=== PATIENT | female | born 1950 | race African-American/Black ===

== ENCOUNTER → 2016-12-21 | Outpatient (CLI) | payer OTHER ==
[~2016-12-21] MED LIST: AMLODIPINE BESYL5 MG; ASPIRIN EC81 M1 PO; ATORVASTATIN CA40 MG PO; CIPROFLOXACIN500 M1 PO; ESTRADIOL 1 MG T1 M1; FLAGYL500 MG PO; LESCOL XL80 MG; LOTREL 5-20 MG1 EACH PO; METFORMIN HCL500 MG PO; NORCO 5-325 TA1 EACH PO; PROVERA5 MG; ZOFRAN ODT4 MG PO
== END ==
LOC: RAD 01:19
DX: Z12.31 Encounter for screening mammogram for malignant neoplasm of breast (principal)

== ENCOUNTER 2017-02-13 05:18 | Inpatient (IN) | payer OTHER ==
[2017-02-06 12:39] LABS: URINE BLOOD NEGATIVE (Negative); URINE COLOR YELLOW; URINE GLUCOSE-RANDOM* NEGATIVE (Negative); URINE KETONES TRACE (Negative); URINE LEUKOCYTES-REFLEX NEGATIVE (Negative); URINE PROTEIN (DIPSTICK) 1+ (Negative); URINE SPECIFIC GRAVITY >= 1.030 (1.003-1.035); URINE UROBILINOGEN 0.2 E.U./dl (0.2-1.0)
[2017-02-06 12:45] LABS: ICTOTEST (BILI CONFIRMATORY) Negative (Negative); URINE BILIRUBIN NEGATIVE (Negative)
[2017-02-06 13:15] LABS: SQUAMOUS >10 Many /LPF (0-3)
[2017-02-06 13:16] LABS: CASTS None Seen /LPF (None Seen); CRYSTALS None Seen /LPF (None Seen); URINE RBC None Seen /HPF (0-2); URINE WBC-REFLEX 0-5 Rare /HPF (0-5)
[2017-02-13] VITALS (9 sets, daily range): BP systolic 103–136; BP diastolic 53–74
[~2017-02-13] VITALS: Ht 157.5 cm; Wt 98.9 kg
--- NOTE | ~2017-02-13 | O ---
[facility] [place] [address] OPERATIVE REPORT Name: ARVIN FLORES Room #: 410-P ADM IN M.R.#: [id number] Admission: 02/13/17 Attend Phys: Ralph Esparza MD Discharge: Date of : 52 Report #: [id number] THIS REPORT FOR: //name// CC: Jt Esparza DATE OF SERVICE: 02/13/2017 PREOPERATIVE DIAGNOSIS: Right knee medial compartment osteoarthritis. POSTOPERATIVE DIAGNOSIS: Right knee medial compartment osteoarthritis. PROCEDURE: Right medial compartment arthroplasty, knee. SURGEON: Ralph Esparza MD. MANAGER DOCUMENTATION: Ne Berman PA-C. INDICATIONS FOR MANAGER DOCUMENTATION: Throughout the case, extensive retraction and manipulation of the knee was required. This was afforded to me by my digital assistant. ANESTHESIA: LMA with an adductor canal block. IMPLANTS: Biomet size small twin peg Tyler femur, a size B tibia and a size A polyethylene. TOURNIQUET TIME: 54 minutes. ESTIMATED BLOOD LOSS: 25 mL. COMPLICATIONS: None. SPECIMENS: None. CONDITION UPON LEAVING OPERATING ROOM: Stable. INDICATION FOR PROCEDURE: The patient is a 66-year-old female with severe right knee medial compartment osteoarthritis. She failed conservative treatment for this and after discussion with her, she elected for right unicompartmental knee arthroplasty. DESCRIPTION OF PROCEDURE: Risks, benefits, alternatives, complications were discussed in detail with the patient including but not limited to risk of anesthesia, risk of damage to nerves, arteries, blood vessels, risk for infection, bleeding, risk for continued knee pain and need for reoperation. Informed consent was obtained from the patient. Adductor canal block was placed [facility] [address] [place] [address] OPERATIVE REPORT Name: ARVIN FLORES Room #: 410-P ADM IN M.R.#: [id number] Admission: 02/13/17 Attend Phys: Ralph Esparza MD Discharge: Date of : 52 Report #: [id number] by anesthesia. IV Ancef was given for preoperative antibiotics. She was brought to the operating room and placed in supine position on operating room table. LMA anesthesia was induced without complication. Tourniquet was placed on the right thigh. Right lower extremity was prepped and draped in normal sterile fashion. Timeout was performed properly identifying the patient and procedure as well as the instrumentation. All in the operating room were in agreement. Right lower extremity was exsanguinated, tourniquet was inflated. Tourniquet time was 54 minutes. Standard approach to the medial compartment was made with a 10 blade through the skin. Dissection was taken down sharply to the fascia and deep flaps were developed medially and laterally. Fresh 10 blade was used to make a medial parapatellar arthrotomy and anterior horn of the meniscus were removed sharply. The knee was inspected. There was severe medial compartment osteoarthritis. Lateral compartment and patellofemoral compartment were well maintained. It was decided to proceed with unicompartmental arthroplasty. The tibial resection guide was then pinned in place based off the femoral condyle and tibial resection was made. This was removed and sized, found to be a size B. The flexion gap was checked and found to be a 7. A drill was used to gain access to the canal of the femur and a twin peg guide was then placed and linked to the intramedullary jonathan and the drill holes for the twin pegs were made. Posterior femoral resection was made. The zero spigot was placed and the femur was milled. A femoral trial was placed and the tibial trial was placed. Flexion gap was a 7, extension gap was a 3. A size 4 spigot was placed and the femur was milled again. Flexion and extension gaps were then checked again and found to be well balanced at 7. The anterior femur was then milled and the keel cut was made for the tibia and a keeled tibial trial was placed. A small femoral trial was placed and the knee was then trialed with a size 7 and then a size A polyethylene. It was felt that the A had a little bit better fit than the 7. After this, trial components were removed. Bony ends were thoroughly irrigated with normal saline and final size B tibia and a size small twin peg Tyler femur were cemented in place using standard cementation techniques. While the cement cured, a periarticular injection consisting of ropivacaine, epinephrine, Toradol and morphine was placed in the knee joint. After the cement cured, tourniquet was deflated. Hemostasis was obtained with Bovie cautery. Final size A polyethylene was placed. A gram of vancomycin was placed deep in the knee joint. The fascia was closed with 0 Vicryl, skin was closed with 2-0 Vicryl and 3-0 Monocryl and Aquacel dressing was applied. The patient tolerated this procedure well and went to the recovery room under the care of anesthesia postoperatively. By: 1715 1743 Ralph Esparza MD /geovany
[~2017-02-13 05:18] MED LIST changes: +ALEVE220 MG PO
[2017-02-14 03:37] VITALS: BP 103/55
[2017-02-14 05:40] VITALS: BP 103/55
[2017-02-14 06:34] LABS: HEMATOCRIT 31.3 % (37.0-47.0); HEMOGLOBIN 9.9 gm/dL (12.0-15.0); MCH 28.6 pg (26.0-34.0); MCHC 31.5 g/dL (28.0-37.0); MCV 90.9 fL (80.0-100.0); RBC 3.44 mil/uL (4.20-5.00); RDW 19.1 % (10.5-14.5); WBC 9.6 thou/uL (4.0-11.0)
[2017-02-14 08:00] VITALS: BP 106/63
[2017-02-14 16:51] VITALS: BP 106/53
== END 2017-02-14 18:45 | disposition home health service (06) | DRG 470 ==
LOC: 4N 05:18 → TBA 05:18 → PRE 05:28 → 4N 15:48
PROVIDERS: Orthopaedic Surgery
PROC: 0SRC0L9 Replacement of Right Knee Joint with Medial Unicondylar Synthetic Substitute, Cemented, Open Approach (ICD-10-PCS; principal; 2017-02-13)
DX: M17.11 Unilateral primary osteoarthritis, right knee (principal); I10 Essential (primary) hypertension; F17.200 Nicotine dependence, unspecified, uncomplicated; E11.9 Type 2 diabetes mellitus without complications; E78.5 Hyperlipidemia, unspecified; E66.9 Obesity, unspecified; Z68.39 Body mass index [BMI] 39.0-39.9, adult
CPT/HCPCS: 10790; 50010; 50101; 50415; 51130; 51225; 51771; 52056; 53078; 53370; 54118; 55262; 56527; 56528; 57095; 62110; 62900; 70005

== ENCOUNTER → 2017-08-16 | Outpatient (CLI) | payer OTHER | LOC: NUC 12:39 | DX: N91.2 Amenorrhea, unspecified (principal); Z78.0 Asymptomatic menopausal state ==

== ENCOUNTER 2017-09-25 05:33 | Inpatient (IN) | payer OTHER ==
[2017-09-18 13:05] LABS: HEMOGLOBIN 11.6 gm/dL (12.0-15.0); MCH 29.3 pg (26.0-34.0); MCHC 33.3 g/dL (28.0-37.0); RBC 3.97 mil/uL (4.20-5.00); RDW 19.7 % (10.5-14.5); WBC 9.6 thou/uL (4.0-11.0)
[2017-09-18 13:06] LABS: URINE BILIRUBIN NEGATIVE (Negative); URINE BLOOD NEGATIVE (Negative); URINE CLARITY CLEAR; URINE COLOR YELLOW; URINE GLUCOSE-RANDOM* NEGATIVE (Negative); URINE KETONES NEGATIVE (Negative); URINE LEUKOCYTES-REFLEX NEGATIVE (Negative); URINE NITRITE-REFLEX NEGATIVE (Negative); URINE PROTEIN (DIPSTICK) NEGATIVE (Negative); URINE UROBILINOGEN 0.2 E.U./dl (0.2-1.0)
[2017-09-18 13:13] LABS: CALCIUM 10.3 mg/dL (8.5-10.1); CREATININE 1.2 mg/dL (0.6-1.0); POTASSIUM 4.1 mmol/L (3.5-5.1)
[2017-09-18 13:20] LABS: INR 1.1; PROTIME 11.3 Seconds (9.3-11.4)
[~2017-09-25] VITALS: Ht 157.5 cm; Wt 98.4 kg
--- NOTE | ~2017-09-25 | EKG ---
[address] [place] [address] ELECTROCARDIOGRAM REPORT Name: ARVIN FLORES Room #: PRE IN ..#: [id number] Admission: Attend Phys: Ralph Esparza MD Discharge: Date of : 52 Report #: [id number] THIS REPORT FOR: //name// [facility] Test Date: 2017-09-18 Test Time: 13:02:47 Pat Name: ARVIN FLORES Department: Room: Gender: F Soa Integration Architect: Sarah BOUCHER : 1950 Requested By: Ralph Esparza Order Number: [id number] MD: Hung Davis Measurements Intervals [place] Rate: 72 P: 63 ME: 134 QRS: 21 QRSD: 92 T: 53 QT: 380 QTc: 416 Interpretive Statements Sinus rhythm Normal tracing Compared to ECG 01/27/2016 08:01:11 No significant changes Electronically Signed On 09-18-2017 17:15:28 CDT by Hung Davis [email or web address] <ELECTRONICALLY SIGNED> By: Hung Davis MD, [facility] 09/18/17 1715 1302 1302 Hung Davis MD, FACC /EPI
--- NOTE | ~2017-09-25 | O ---
[facility] [place] [address] OPERATIVE REPORT Name: ARVIN FLORES Room #: 418-P [facility] IN M.R.#: [id number] Admission: 09/25/17 Attend Phys: Ralph Esparza MD Discharge: 09/26/17 Date of : 51 Report #: [id number] THIS REPORT FOR: //name// CC: Jt Esparza DATE OF SERVICE: 09/25/2017 PREOPERATIVE DIAGNOSIS: Left knee medial compartment osteoarthritis. POSTOPERATIVE DIAGNOSIS: Left knee medial compartment osteoarthritis. PROCEDURE: Left unicompartmental knee arthroplasty using NAVIO robotic project assistant. SURGEON: Ralph Esparza MD. RECOIL SPRING WINDER: Ne Berman PA-C. INDICATIONS FOR RECOIL SPRING WINDER: Throughout the case, extensive retraction and manipulation of the knee was required. This was afforded to me by my project assistant. ANESTHESIA: LMA with an adductor canal block. IMPLANTS: De Los Santos and Nephew size 2 Stride medial femoral component, a size 3 tibia and a size 8 polyethylene. TOURNIQUET TIME: 58 minutes. ESTIMATED BLOOD LOSS: 25 mL. COMPLICATIONS: None. SPECIMENS: None. CONDITION UPON LEAVING THE OPERATING ROOM: Stable. INDICATION FOR PROCEDURE: The patient is a 67-year-old female with left knee medial compartment osteoarthritis. She had failed conservative treatment for this and after discussion with her, she elected for left unicompartmental knee arthroplasty. DESCRIPTION OF PROCEDURE: Risks, benefits, alternatives, complications were discussed in detail with the patient including but not limited to risk of anesthesia, risk of damage to nerves, arteries, blood vessels; risk for infection, bleeding, risk for continued knee pain and need for reoperation. [facility] [address] [place] [address] OPERATIVE REPORT Name: ARVIN FLORES Room #: 418-P DIS IN M.R.#: [id number] Admission: 09/25/17 Attend Phys: Ralph Esparza MD Discharge: 09/26/17 Date of : 51 Report #: [id number] Informed consent was obtained from the patient. Left knee was appropriately marked in the preoperative holding area. IV Ancef was given for preoperative antibiotic. She was brought to the operating room and placed in supine position on operating room table. LMA anesthesia was induced without complication. Tourniquet was placed on the left thigh. Left lower extremity was prepped and draped in normal sterile fashion. Timeout was performed properly identifying the patient and procedure as well as the instrumentation and implants. All in the operating room were in agreement. Left lower extremity was exsanguinated, tourniquet was inflated. Tourniquet time was 58 minutes. Standard midline approach to knee was made with 10 blade through the skin. Dissection was taken down sharply to the fascia and deep flaps were developed medially and laterally. Fresh 10 blade was used to make a medial parapatellar arthrotomy and the knee was inspected. There was severe medial compartment osteoarthritis. Lateral compartment was well maintained, the patellofemoral compartment was well maintained. ACL and PCL were intact. It was decided to proceed with unicompartmental knee arthroplasty. Tibial and femoral reference pins were then placed and the knee was then digitally mapped out using the standard NAVIO technique for a medial compartment arthroplasty. Intraoperative plan was then made and this was sized for size 2 femur and a size 3 tibia. Femoral resection was then performed using the NAVIO bur and tibial resection was also performed using the NAVIO bur. After this tibia was sized again and found to be a size 3. Drill holes for the size 3 tibial component were then placed and a size 3 tibial trial was placed, size 2 femoral trial was placed and this was then trialed with a size 8 polyethylene. Knee was taken through range of motion and found to have good balance in flexion and extension both medially and laterally. This was performed both manually and verified digitally using the NAVIO system. After this, the trial components were removed. Bony ends were thoroughly irrigated with normal saline. A final size 3 Stride tibial component and size 2 femoral component were cemented in place using standard cementation techniques. While the cement cured, a periarticular injection consisting of morphine, ropivacaine, epinephrine and Toradol was placed around the knee joint capsule and tissues. After the cement cured, the tourniquet was deflated. Hemostasis was obtained with Bovie cautery. A final size 8 polyethylene was placed. A gram of vancomycin was placed deep in the joint. The fascia was closed with 0 Vicryl, skin was closed with 2-0 Vicryl, 3-0 Monocryl and a NGUYEN dressing was applied. The patient tolerated this procedure well and went to recovery room under care of Anesthesia postoperatively. <ELECTRONICALLY SIGNED> By: Ralph Esparza MD 09/27/17 1237 1442 1501 Ralph Esparza MD /nt
[~2017-09-25 05:33] MED LIST changes: +ASPIR 8181 M1 PO
[2017-09-25 11:10] VITALS: BP 116/62
[2017-09-25 19:26] VITALS: BP 100/49
[2017-09-25 23:33] VITALS: BP 120/56
[2017-09-26] VITALS: BP 110/54
[2017-09-26 01:00] VITALS: BP 104/53
[2017-09-26 02:00] VITALS: BP 96/55
[2017-09-26 03:50] VITALS: BP 107/57
[2017-09-26 06:25] LABS: HEMATOCRIT 31.4 % (37.0-47.0); MCHC 31.9 g/dL (28.0-37.0); MCV 90.9 fL (80.0-100.0); RBC 3.45 mil/uL (4.20-5.00); RDW 19.7 % (10.5-14.5)
[2017-09-26] MEDS ORDERED: MS CONTIN15 MG PO (09:59)
[2017-09-26] MEDS ORDERED: TRI-BUFFERED A325 M1 PO (09:59)
[2017-09-26] MEDS ORDERED: HYDROCODON-ACE1 EAC7 PO (09:59)
[2017-09-26 13:17] VITALS: BP 118/60
== END 2017-09-26 15:05 | disposition home or self-care (01) | DRG 470 ==
LOC: TBA 05:33 → 4E 05:33 → PRE 05:34 → 4E 21:20 → ENTRNSPT 09-26 14:32 → EDTRNSPTSTS 09-26 14:33 → 4E 09-26 15:05
PROVIDERS: Orthopaedic Surgery
PROC: 8E0Y0CZ Robotic Assisted Procedure of Lower Extremity, Open Approach (ICD-10-PCS; principal; 2017-09-25)
PROC: 0SRD0L9 Replacement of Left Knee Joint with Medial Unicondylar Synthetic Substitute, Cemented, Open Approach (ICD-10-PCS; principal; 2017-09-25)
DX: M17.12 Unilateral primary osteoarthritis, left knee (principal); E11.9 Type 2 diabetes mellitus without complications; I10 Essential (primary) hypertension; E78.5 Hyperlipidemia, unspecified; Z96.651 Presence of right artificial knee joint; E66.9 Obesity, unspecified; Z87.891 Personal history of nicotine dependence; Z90.49 Acquired absence of other specified parts of digestive tract; Z68.39 Body mass index [BMI] 39.0-39.9, adult; Z90.5 Acquired absence of kidney; Z79.82 Long term (current) use of aspirin; Z79.899 Other long term (current) drug therapy
CPT/HCPCS: 10783; 50010; 50101; 50415; 50954; 51130; 51225; 51771; 53078; 53370; 54118; 56527; 56528; 57095; 62110; 62900; 64037; 70005

== ENCOUNTER → 2017-12-22 | Outpatient (CLI) | payer OTHER ==
[~2017-12-22] MED LIST changes: +HYDROCODON-ACE1 EAC7 PO; +MS CONTIN15 MG PO; +TRI-BUFFERED A325 M1 PO
== END ==
LOC: RAD 01:47
DX: Z12.31 Encounter for screening mammogram for malignant neoplasm of breast (principal)

== ENCOUNTER → 2018-12-24 | Outpatient (CLI) | payer OTHER | LOC: RAD 03:36 | DX: Z12.31 Encounter for screening mammogram for malignant neoplasm of breast (principal) ==

== ENCOUNTER 2019-03-27 06:37 | Day surgery (SDC) | payer OTHER ==
[~2019-03-27] VITALS: Ht 157.5 cm; Wt 97.5 kg
[~2019-03-27 06:37] MED LIST changes: +AMLODIPINE-BEN1 EAC3 PO; +ASA81BEC PO; -ATORVASTATIN CA40 MG PO; +LIPITOR40 MG PO
[2019-03-27 07:53] VITALS: BP 143/72
--- NOTE | 2019-03-27 09:13 | H ---
[facility] [place] [address] HISTORY AND PHYSICAL Name: ARVIN FLORES Room #: 150-3 [facility] M.R.#: [id number] Admission: 03/27/19 Attend Phys: Toby Mix MD Discharge: Date of : 51 Report #: [id number] THIS REPORT FOR: //name// CC: Jt Delacruz DO Toby Mix PATIENT OF: Dr. Toby Mix and Dr. Jt Delacruz. DATE OF ADMISSION AND SURGERY: 03/27/2019. CHIEF COMPLAINT: "Spots on the back, my neck and buttocks." HISTORY OF PRESENT ILLNESS: The patient is a 69-year-old obese -[place]ian female who has acutely inflamed hidradenitis on the posterior occiput that was successfully treated with oral antibiotics. She also has been having some chronic swelling, redness and drainage between her buttocks over the last 5-10 years. She completed a recent course of Keflex and both areas improved. Her buttock wound at that time was still having some purulent drainage; however, appears to have significantly resolved. After full discussion with the patient and her in the office, the diagnosis, prognosis, and treatment options, I did explain that we can excise the area on the posterior neck and perform surgery to attempt to cure her pilonidal cyst with the understanding that neither of these surgeries are concerned 100% effective. They state they understand and wish to proceed with surgery. PAST MEDICAL HISTORY: Obesity; diabetes; history of right renal cell carcinoma, status post laparoscopic nephrectomy by Dr. Tucker Malone in 2000; hypertension; open cholecystectomy in 1994; bilateral tubal ligation; sigmoid colectomy on 08/13/2014; excision of left axillary hidradenitis in 10/2014 and excision of right axillary hidradenitis in 01/2016. MEDICATIONS: Aspirin, amlodipine, benazepril, hydrochlorothiazide, atorvastatin, metformin, doxycycline. ALLERGIES: No known drug allergies. FAMILY HISTORY: Mother, father, sister, brother and daughter, all with hypertension. Mother also with a diagnosis of diabetes. SOCIAL HISTORY: , quit smoking in 2013. Drinks alcohol rarely. REVIEW OF SYSTEMS: Pertinent positives as above. Full review of systems is otherwise negative. PHYSICAL EXAMINATION: GENERAL: This is a well-developed, well-nourished, obese -[place]ian [facility] [address] [place] [address] HISTORY AND PHYSICAL Name: ARVIN FLORES Room #: 150-3 [facility] M.R.#: [id number] Admission: 03/27/19 Attend Phys: Toby Mix MD Discharge: Date of : 52 Report #: [id number] female, in no acute distress. VITAL SIGNS: Stable. She is afebrile. Height 62 inches, weight is 222 pounds. HEENT: Sclerae are nonicteric. Mucous membranes are moist and pink. NECK: There is no adenopathy, no thyromegaly. In the posterior occipital crease, there is about a 12 cm x 1 cm line of hidradenitis across the back of the neck within a crease. LUNGS: Clear to auscultation bilaterally. Normal excursion. CARDIOVASCULAR: Regular rate and rhythm. No murmurs, S3, S4, no PMI. ABDOMEN: Obese, soft, flat and nontender. No palpable masses, no organomegaly, no hernias. BUTTOCKS: Between the buttocks, there were several pilonidal sinuses and there is a cyst to the left of the midline at the top of the crease with no tenderness. There is some purulent drainage. No palpable cystic mass. EXTREMITIES: No clubbing, cyanosis or edema. NEUROLOGIC: Intact. Clear mental status. No focal motor or sensory deficits. IMPRESSION: A 69-year-old -[place]ian female with hidradenitis in the posterior occiput and a pilonidal cyst. I fully discussed with the patient and her the diagnosis, prognosis, treatment options. I am recommending excision of the posterior occiput hidradenitis and marsupialization of pilonidal cyst with the understanding that surgery is not a 100% guarantee that this will not recur. They state they understand and agreed to proposed surgery. PLAN: We will perform the excision of the posterior occipital hidradenitis and marsupialization of pilonidal cyst in the prone position under general anesthesia as an outpatient at [facility]. The procedure and its risks, benefits and possible complications including the risk of recurrence were fully discussed with the patient and her . They state they understand and agreed to proposed surgery. <ELECTRONICALLY SIGNED> By: Toby Mix MD 03/27/19 0913 1057 1112 Toby Mix MD /nt
[2019-03-27] MEDS ORDERED: NORCO 5-325 TA1 EAC1 PO (09:18)
[2019-03-27 12:09] VITALS: BP 143/72
--- NOTE | 2019-03-27 17:12 | EKG ---
[place] [address] [facility] [place] [address] ELECTROCARDIOGRAM REPORT Name: ARVIN FLORES Room #: [facility].#: [id number] Admission: 03/27/19 Attend Phys: Toby Mix MD Discharge: 03/27/19 Date of : 52 Report #: [id number] THIS REPORT FOR: //name// [facility] Test Date: 2019-03-27 Test Time: 07:17:37 Pat Name: ARVIN FLORES Department: Room: 150 3 Gender: F Outside Plant Supervisor: ROCIO : 1950 Requested By: Toby Mix Order Number: [id number] MD: Leon Ortiz Measurements Intervals [place] Rate: 74 P: 62 ME: 136 QRS: 19 QRSD: 85 T: -13 QT: 383 QTc: 425 Interpretive Statements Sinus rhythm Probable left atrial enlargement Borderline T abnormalities, inferior leads Baseline wander in lead(s) II,III,aVR,aVL,aVF,V5 Compared to ECG 09/18/2017 13:02:47 T-wave abnormality now present Electronically Signed On 03-27-2019 17:11:36 SHOE FITTER by Leon Ortiz [email or web address] <ELECTRONICALLY SIGNED> By: Leon Ortiz MD 03/27/19 1711 6 6 Leon Ortiz MD /EPI
--- NOTE | 2019-03-28 14:43 | O ---
[facility] [place] [address] OPERATIVE REPORT Name: ARVIN FLORES Room #: DEP [facility] M.R.#: [id number] Admission: 03/27/19 Attend Phys: Toby Mix MD Discharge: 03/27/19 Date of : 52 Report #: [id number] THIS REPORT FOR: //name// CC: Jt Delacruz DO Toby Mix DATE OF SERVICE: 03/27/[address] Toby Mix, Dr. Jt Delacruz. PREOPERATIVE DIAGNOSIS: 15 x 2 cm hidradenitis suppurativa of the posterior occiput and chronically inflamed pilonidal cyst. POSTOPERATIVE DIAGNOSIS: 15 x 2 cm hidradenitis suppurativa of the posterior occiput and chronically inflamed pilonidal cyst. PROCEDURE: Excision of 15 cm x 2 cm hidradenitis suppurativa of the posterior occiput and marsupialization of pilonidal cyst. SURGEON: Toby Mix MD ANESTHESIA: General. DESCRIPTION OF PROCEDURE: The patient was brought to the operating room, where she underwent a general endotracheal anesthesia on the stretcher. She was then placed in the prone position on a Prone's pillow. The posterior neck was then prepped and draped in a sterile fashion. Skin and subcutaneous tissue were then infiltrated with 0.5% Marcaine with epinephrine. Elliptical skin incision was performed around this 15 x 2 cm area of hidradenitis on the back of the neck. This was incised down through the subcutaneous tissue using the #10 scalpel blade and the cutting electrocautery. The skin and subcutaneous tissue was then excised using the electrocautery and sent as specimen to pathology. Meticulous hemostasis was obtained in the area using the electrocautery. The skin and subcutaneous tissue was then reapproximated using interrupted vertical mattress 3-0 nylon sutures. The wound was then dressed with antibiotic ointment, 4 x 4 gauze, sponge and tape. The buttock area was then prepped and draped in a sterile fashion. Once again, the area of the chronic pilonidal cyst was infiltrated with 0.5% Marcaine with epinephrine. An incision was performed through the pilonidal sinuses in the midline down to the base of the cyst, which was on the fascia overlying the sacrum. Dissection was carried superiorly. On the left upper buttock, there was an area of chronic cyst and abscess with scar tissue. This was all opened and debrided. The skin edges including the pilonidal sinuses was elliptically excised and sent as specimen to pathology. The skin edges were then dissected free using the electrocautery. The skin edges were then sewn to the base of the cyst using simple interrupted 2-[address] [address] OPERATIVE REPORT Name: ARVIN FLORES Room #: DEP [facility] Fela#: [id number] Admission: 03/27/19 Attend Phys: Toby Mix MD Discharge: 03/27/19 Date of : 52 Report #: [id number] chromic sutures. The wound was then packed open with gauze, fluffs, 4 x 4 gauze, sponge, ABD pad and tape. The patient was then placed on the stretcher in the supine position, was awakened from the general endotracheal anesthesia, extubated, and taken to recovery room in good condition. Estimated blood loss was approximately 20 mL total for both procedures and the patient tolerated the procedure well. All sponge, lap and instrument counts correct x 2. <ELECTRONICALLY SIGNED> By: Toby Mix MD 03/28/19 1443 1122 1136 Toby Mix MD /nt
--- NOTE | 2019-03-29 18:06 | PATH ---
[facility] [address] [place] [address] PATHOLOGY RPT PROCEDURE Name: SISSY FLORES Room #: DEP [facility] M.R.#: [id number] Admission: 03/27/19 Date of : 52 Discharge: 03/27/19 Report #: [id number] Path Case #: [id number] [facility] Accession Number: [id number] . 01 Material submitted: . PART A: neck - OCCIPUT HIDRADENITIS PART B: buttock - PILONIDAL CYST . 01 Clinical history: . Pilonidal cyst without abscess, hidradenitis suppurativa; occiput hidradenitis . 02 Diagnosis: A. Occiput hidradenitis, excision: - Mature keratinous cyst associated with an acute and chronic inflammatory reaction within dermis. - Overlying squamous epithelium showing seborrheic keratosis. - Negative for malignancy. . B. Pilonidal cyst, excision: - Mature keratinous cyst associated with marked acute and chronic inflammation, consistent with a ruptured cyst. - Completely excised. - Negative for malignancy. . (IUV:king; 03/29/2019) QMS 03/29/2019 1305 Local . 02 Electronically signed: . Saadia Fox MD, Pathologist NPI- [id number] . 01 Gross description: . A. The specimen is received in formalin, labeled "Sissy Flores, occiput hidradenitis tissue". Received is an ellipse of casanova-brown skin measuring 13.1 x 1.8 x 1.5 cm in greatest dimensions. The epidermal surface displays a linear furrow measuring 10.4 cm in length. Sectioning reveals pale byrd to bright yellow, lobulated cut surfaces throughout with no grossly distinct nodules or lesions. The specimen is submitted representatively in cassettes A1 and A2. . B. The specimen is received in formalin, labeled "Sissy Flores, pilonidal cyst". Received is an irregular excision of casanova-brown skin with attached underlying fibroadipose tissue measuring 9.6 x 3.8 x 1.5 cm in greatest dimensions. The epidermal surface displays a circular/linear defect measuring 8.5 cm in length, which goes through the depth of the entire specimen. Sectioning reveals white, fibrous to bright yellow, [place] [address] PATHOLOGY RPT PROCEDURE Name: SISSY FLORES Room #: DEP [facility] Fela#: [id number] Admission: 03/27/19 Date of : 52 Discharge: 03/27/19 Report #: [id number] Path Case #: [id number] cut surfaces with a single small cystic structure identified measuring 0.3 cm filled with white-byrd friable material. The entire cystic structure is submitted in cassette B1. (CAA; 03/28/2019) QAC/QAC 03/28/2019 1150 Local . 02 Pathologist provided ICD-10: L72.9, L82.1, L05.91 . 02 CPT . 653510, 488790 Specimen Comment: A courtesy copy of this report has been sent to [phone], [phone] Specimen Comment: [id number] Specimen Comment: Report sent to / DR LOZANO Performed at: [address], [place] [id number] MD Bryn Bowens MD Phone: [phone] Performed at: [address] [id number] MD Saadia Fox MD Phone: [phone]
== END 2019-03-27 13:54 | disposition home or self-care (01) ==
LOC: OR 06:37 → TBA 06:38 → OR 09:09
DX: L73.2 Hidradenitis suppurativa (principal); L05.01 Pilonidal cyst with abscess; L72.9 Follicular cyst of the skin and subcutaneous tissue, unspecified; L82.1 Other seborrheic keratosis; I10 Essential (primary) hypertension; E11.9 Type 2 diabetes mellitus without complications; E78.00 Pure hypercholesterolemia, unspecified; E66.09 Other obesity due to excess calories; Z98.890 Other specified postprocedural states; Z79.899 Other long term (current) drug therapy; Z87.19 Personal history of other diseases of the digestive system; Z90.49 Acquired absence of other specified parts of digestive tract; Z85.528 Personal history of other malignant neoplasm of kidney; Z98.51 Tubal ligation status; Z96.653 Presence of artificial knee joint, bilateral; Z90.5 Acquired absence of kidney; Z87.891 Personal history of nicotine dependence; Z79.82 Long term (current) use of aspirin; Z98.0 Intestinal bypass and anastomosis status; Z68.39 Body mass index [BMI] 39.0-39.9, adult
CPT/HCPCS: 50010; 50101; 50386; 50403; 56524; 56526; 56527; 62110; 62900; 70005

== ENCOUNTER → 2019-12-26 | Outpatient (CLI) | payer OTHER ==
[~2019-12-26] MED LIST changes: +NORCO 5-325 TA1 EAC1 PO
== END ==
LOC: BC 10:46
PROVIDERS: ATTEND Obstetrics & Gynecology
DX: Z12.31 Encounter for screening mammogram for malignant neoplasm of breast (principal)

== ENCOUNTER → 2020-05-15 | Outpatient (CLI) | payer OTHER | LOC: CAT 14:54 | PROVIDERS: ATTEND Family Medicine | DX: K57.30 Diverticulosis of large intestine without perforation or abscess without bleeding (principal); N28.89 Other specified disorders of kidney and ureter ==

== ENCOUNTER → 2021-01-04 | Outpatient (CLI) | payer OTHER | LOC: BC 09:47 | PROVIDERS: ATTEND Obstetrics & Gynecology | DX: Z12.31 Encounter for screening mammogram for malignant neoplasm of breast (principal); N63.20 Unspecified lump in the left breast, unspecified quadrant ==